=== PATIENT | female | born 1955 | race Caucasian/White ===

== ENCOUNTER → 2018-08-31 09:24 | Outpatient (CLI) | payer OTHER, SELFPAY ==
--- NOTE | 2018-08-31 09:27 | MM_ITS ---
MM Dig screening mamm BI w/CAD CAD Screening COMPARISON: Digital mammograms with CAD 08/11/2017 and 01/15/2016 INDICATION: There is no personal or family history of breast cancer TECHNIQUE: Standard CC and MLO images were obtained. R2 CAD reviewed. FINDINGS: Rather heterogenic fibroglandular densities are seen in central portions of both breast and the findings are bilateral and symmetrical. There is no suspicious lesion and there are no suspicious microcalcifications. IMPRESSION: Moderate breast density with no suspicious lesion seen BI-RADS Category: 1 Negative RECOMMENDED FOLLOW-UP: 1YR - 1 YEAR FOLLOW-UP (A letter has been sent to the patient regarding results of the study.)
== END ==
PROVIDERS: PCP Internal Medicine; Visit Provider Internal Medicine
DX: Z12.31 Encounter for screening mammogram for malignant neoplasm of breast (principal); I20.9 Angina pectoris, unspecified
CPT/HCPCS: 77067; 93005

== ENCOUNTER → 2019-09-03 09:48 | Outpatient (CLI) | payer BC, SELFPAY ==
--- NOTE | 2019-09-03 09:50 | MM_ITS ---
PROCEDURE: MM DIG SCREENING MAMM BI W/CAD CLINICAL INDICATION: SCREENING There is a history of breast cancer in the patient's paternal cousin. COMPARISON: [facility] DIG MAMM-SCREEN [facility]O from 01/15/2016 [facility] DIG MAMM-SCREEN [facility] W/CAD from 08/11/2017 [facility] MM Dig screening mamm BI w/CAD from 08/31/2018 TECHNIQUE: Standard CC and MLO images were obtained. R2 CAD reviewed. FINDINGS: Prominent somewhat heterogenic fibroglandular densities are seen in the central portions of both breasts and the findings of bilateral and symmetrical. There is no suspicious lesion and no suspicious microcalcifications. IMPRESSION: Moderate breast density with no suspicious lesions seen BI-RAD Category: 1 Negative FOLLOW-UP: 1YR 1 Year Follow-up (A letter has been sent to the patient regarding results of the study.) Dictated by: Dr. Mingo Blevins MD 09/06/2019 09:[address] Mingo Blevins MD in [place] 09/06/2019 09:51
== END ==
PROVIDERS: PCP Internal Medicine; Visit Provider Internal Medicine
DX: Z12.31 Encounter for screening mammogram for malignant neoplasm of breast (principal)
CPT/HCPCS: 77067

== ENCOUNTER → 2019-09-28 09:06 | Outpatient (POV) | payer BC, SELFPAY | PROVIDERS: Visit Provider Dermatology | DX: Z00.00 Encounter for general adult medical examination without abnormal findings (principal) ==

== ENCOUNTER → 2020-09-08 12:49 | Outpatient (CLI) | payer BC, SELFPAY ==
--- NOTE | 2020-09-08 12:51 | MM_ITS ---
PROCEDURE: MM DIG SCREENING MAMM BI W/CAD Digital Breast Tomosynthesis Included CLINICAL INDICATION: SCREENING There is a history of breast cancer in the patient's paternal cousin. There has been a previous biopsy left breast for benign disease. COMPARISON: MG [facility] DIG MAMM-SCREEN G[facility] W/CAD from 08/11/2017 MG [facility] MM Dig screening mamm BI w/CAD from 08/31/2018 MG MM DIG SCREENING MAMM BI W/CAD from 09/03/2019 TECHNIQUE: Standard CC and MLO images and 3D Tomosynthesis was obtained. R2 CAD reviewed. FINDINGS: Prominent heterogenic fibroglandular densities are seen in the central portions of both breast and the findings are bilateral and symmetrical. The findings are stable and unchanged from the previous exams. There is no suspicious lesion and no suspicious microcalcifications. There are couple fatty replaced nodes in both axilla. IMPRESSION: Moderate heterogenic breast density with no suspicious lesions seen BI-RAD Category: 1 Negative FOLLOW-UP: 1YR 1 Year Follow-up (A letter has been sent to the patient regarding results of the study.) Dictated by: Dr. Mingo Blevins MD 09/12/2020 11:52 Dr. Mingo Blevins MD in [place] 09/12/2020 11:52
== END ==
PROVIDERS: PCP Internal Medicine; Visit Provider Internal Medicine
DX: Z12.31 Encounter for screening mammogram for malignant neoplasm of breast (principal)
CPT/HCPCS: 77063; 77067

== ENCOUNTER 2021-01-20 12:16 | Emergency (ER) | payer BC, SELFPAY ==
[2021-01-20 12:17] VITALS: BP 175/83; PULSE 76; RESP 26; TEMP 36.8; O2SAT 99; BMI 64.5
--- NOTE | 2021-01-20 12:23 | HMH.EDGENADL ---
ED Disposition Clinical Impression: Facial contusion Qualifiers: Encounter type: initial encounter Qualified Code(s): S00.83XA - Contusion of other part of head, initial encounter Facial hematoma Qualifiers: Encounter type: initial encounter Qualified Code(s): S00.83XA - Contusion of other part of head, initial encounter Facial laceration Qualifiers: Encounter type: initial encounter Qualified Code(s): S01.81XA - Laceration without foreign body of other part of head, initial encounter Disposition: Home, Self-Care Condition on Discharge: Good Instructions: DI for Hematoma (Bruise), DI for Closed Head Injury Additional Instructions: Ice 20 minutes 4-5 times a day for 2 days. Keep head elevated for 2 days. Tylenol or ibuprofen for pain. Additional instructions for HEAD INJURY: Return immediately if severe headache, vomiting, problems with vision or speech, numbness or weakness of the extremities, or severe neck pain. Return to the emergency department if any redness or pus drainage from the skin wounds or if fever develops. Referrals: Moris Eng [Primary Care Provider] - - Critical Care Critical Care Time: No Attestation: On , the high probability of a clinically significant, sudden or life threatening deterioration of the following system(s) required my full and direct attention, intervention and personal management. The time I documented below is in addition to time spent performing reported procedures but includes the following listed in this critical care notation. Medical Decision Making - Johnathan Inquiry Pt receiving controlled substance: No Vital Signs: 01/20/21 12:17 01/20/21 13:37 Temperature 98.3 F 98.3 F Temperature Source Oral Oral Pulse Rate 71 Pulse Rate [Right] 76 Respiratory Rate 26 H 18 Blood Pressure 133/76 Blood Pressure [Right Arm] 175/83 H Blood Pressure Mean [Right Arm] 113 Blood Pressure Source Automatic Cuff Blood Pressure Position Sitting 02 Sat by Pulse Oximetry 99 Oxygen Delivery Method Room Air Room Air Orders (Tests/Meds): ED MEDICATIONS Discontinued Medications Generic Name Dose Route Start Last Admin Trade Name Freq PRN Reason Stop Dose Admin Tetanus/Reduced Diphtheria/Acell Pertussis 0.5 ml 01/20/21 12:31 01/20/21 12:40 Tet/Diphth/Pert-Adult 0.5ml Syringe IM 01/20/21 12:32 0.5 ml .ONCE ONE Administration - CT Data CT Scan: Head, Other (facial) Time Received: 13:[address] Reviewed: Yes: I have viewed the radiologist's interpretation Findings Narrative: PROCEDURE: CT HEAD/BRAIN WO CON CLINICAL INDICATION: facial injury Head injury with headache/pain, contusion, abrasion or hematoma COMPARISON: No exams were available for comparison TECHNIQUE: Axial images obtained. All CT scans at the facility use one or more dose reduction, viz: automated exposure control, ma/kV adjustment per patient size (including targeted exams where dose is matched to indication, i.e. head), or iterative reconstruction technique. FINDINGS: No midline shift, mass effect, intracranial hemorrhage, hydrocephalus, or extra-axial fluid collection is evident. The calvarium has an unremarkable appearance. No mastoid effusion. Trace amount fluid is present in the sphenoid sinus on the left. IMPRESSION: No acute intracranial finding Dictated by: Reinier Patterson MD 01/20/2021 13:10 Reinier Patterson MD in [place] 01/20/2021 13:10 PROCEDURE: CT FACIAL BONES WO CON CLINICAL HISTORY: facial injury Facial trauma, nasal injury with contusion COMPARISON: No exams were available for comparison TECHNIQUE: Axial images obtained with sagittal and coronal reformats. All CT scans at the facility use one or more dose reduction, viz: automated exposure control, ma/kV adjustment per patient size (including targeted exams where dose is matched to indication, i.e. head), or iterative reconstruction technique. FINDINGS: There do
--- NOTE | 2021-01-20 12:31 | CT_ITS ---
PROCEDURE: CT FACIAL BONES WO CON CLINICAL HISTORY: facial injury Facial trauma, nasal injury with contusion COMPARISON: No exams were available for comparison TECHNIQUE: Axial images obtained with sagittal and coronal reformats. All CT scans at the facility use one or more dose reduction, viz: automated exposure control, ma/kV adjustment per patient size (including targeted exams where dose is matched to indication, i.e. head), or iterative reconstruction technique. FINDINGS: There does appear to be a nondisplaced fracture involving tip of nasal bone which is age indeterminate as there is no soft tissue swelling at this region.. Nasal septum has an unremarkable appearance. No maxillary sinus air-fluid level. There is a small amount fluid in the sphenoid sinus. There are few scattered small cervical lymph nodes. Considerable artifact present patient's dental work. There is a small retention cyst in the floor the left maxillary sinus at approximately 9 x 5 mm. There is soft tissue swelling along the bridge of the nose and central frontal region. The overlying frontal sinus has an unremarkable appearance. Hematoma is present at the bridge of the nasal bone within the soft tissues measuring 1.8 x 0.8 cm. IMPRESSION: 1. Soft tissue hematoma is present at the junction at the bridge of the nose region and frontal area 2. Nondisplaced fracture involves the tip of the nasal bone. 3. Small air-fluid level in the sphenoid sinus. Left maxillary retention cyst Dictated by: Reinier Patterson MD 01/20/2021 13:21 Reinier Patterson MD in [facility] 01/20/2021 13:21
--- NOTE | 2021-01-20 12:31 | CT_ITS ---
PROCEDURE: CT HEAD/BRAIN WO CON CLINICAL INDICATION: facial injury Head injury with headache/pain, contusion, abrasion or hematoma COMPARISON: No exams were available for comparison TECHNIQUE: Axial images obtained. All CT scans at the facility use one or more dose reduction, viz: automated exposure control, ma/kV adjustment per patient size (including targeted exams where dose is matched to indication, i.e. head), or iterative reconstruction technique. FINDINGS: No midline shift, mass effect, intracranial hemorrhage, hydrocephalus, or extra-axial fluid collection is evident. The calvarium has an unremarkable appearance. No mastoid effusion. Trace amount fluid is present in the sphenoid sinus on the left. IMPRESSION: No acute intracranial finding Dictated by: Reinier Patterson MD 01/20/2021 13:10 Reinier Patterson MD in [facility] 01/20/2021 13:10
[2021-01-20 13:37] VITALS: BP 133/76; PULSE 71; RESP 18; TEMP 36.8; O2SAT 99
== END 2021-01-20 13:39 | disposition home or self-care (01) ==
PROVIDERS: Emergency Provider Emergency Medicine; PCP Internal Medicine
DX: S00.83XA Contusion of other part of head, initial encounter (principal); S01.81XA Laceration without foreign body of other part of head, initial encounter; W22.8XXA Striking against or struck by other objects, initial encounter; Y92.89 Other specified places as the place of occurrence of the external cause; Z23 Encounter for immunization
CPT/HCPCS: 70450; 70486; 90471; 90715; 99282

== ENCOUNTER → 2021-09-25 13:25 | Outpatient (CLI) | payer BC, SELFPAY ==
--- NOTE | 2021-09-25 13:27 | MM_ITS ---
PROCEDURE INFORMATION: Exam: MG Bilateral Screening 3D Mammography Exam date and time: 09/25/2021 1:27 PM Age: 65 years old Clinical indication: Encounter for screening mammogram for malignant neoplasm of breast TECHNIQUE: Imaging protocol: Bilateral screening tomosynthesis and 2D mammography including computer-aided detection (CAD) when performed. COMPARISON: 1. MG MM DIG SCREENING MAMM BI W/CAD 09/08/2020 12:59 PM 2. MG MM DIG SCREENING MAMM BI W/CAD 09/03/2019 10:00 AM FINDINGS: MAMMOGRAPHY: Breast composition: The breast tissue is heterogeneously dense, which may obscure small masses. Mass: None. Architectural distortion: None. Calcifications: No suspicious calcifications. Asymmetric density: None. Skin thickening: None. Axillary adenopathy: None. IMPRESSION: No mammographic evidence of malignancy. Annual screening is recommended unless otherwise clinically indicated. ASSESSMENT: BI-RADS Category 1: Negative
[2021-09-25 19:12] LABS: Basophils # 0.1 K/mm3 (0-0.2); Basophils % 0.7 % (0.1-2.0); Eosinophils # 0.2 K/mm3 (0.0-0.4); Eosinophils % 2.1 % (0.1-12.0); Hematocrit 39.2 % (37.0-47.0); Hemoglobin 12.8 g/dL (12.2-16.2); Lymphocytes # 2.8 K/mm3 (0.7-4.5); Lymphocytes % 36.1 % (10-50); Mean Corpuscular HGB Conc 32.7 g/dL (31.8-35.4); Mean Corpuscular Hemoglobin 28.7 pg (27.0-31.2); Mean Corpuscular Volume 87.9 fl (81-99); Mean Platelet Volume 10.4 fl (7.4-10.4); Monocytes # 0.4 K/mm3 (0.1-1.0); Monocytes % 5.3 % (1.7-9.3); Neutrophils # 4.3 K/mm3 (1.8-7.8); Neutrophils % 55.8 % (37.0-80.0); Platelet Count 281 K/mm3 (142-424); Red Blood Count 4.46 M/mm3 (4.20-5.40); Red Cell Distribution Width 13.4 % (11.5-17.5); White Blood Count 7.6 K/mm3 (4.8-10.8)
[2021-09-25 19:22] LABS: Chloride 102 mmol/L (98-107)
[2021-09-25 19:23] LABS: Potassium 4.3 mmoL/L (3.5-5.1); Sodium 139 mmol/L (136-145)
[2021-09-25 19:25] LABS: Alanine Aminotransferase 20 U/L (12-78); Albumin Level 4.7 g/dl (3.5-5.0); Albumin/Globulin Ratio 1.7 (1.1-1.8); Alkaline Phosphatase 106 U/L (38-126); Anion Gap 15.3 mEq/L (5-15); Aspartate Amino Transferase 34 U/L (14-36); Bilirubin,Total 0.2 mg/dl (0.2-1.3); Blood Urea Nitrogen 29 mg/dl (7-17); Carbon Dioxide 26 mmol/L (22.0-30.0); Estimated Glomerular Filt Rate 72 ml/min (>60); GFR (African American) 87 ML/MIN (>60); Globulin 2.7 g/dL (1.3-3.2); Total Protein,Serum 7.4 g/dl (6.3-8.2)
[2021-09-25 19:26] LABS: Calcium 9.7 mg/dl (8.4-10.2); Chol/HDL Ratio 2.6 (1-3.5); Cholesterol 147 mg/dl (140-200); Glucose 65 mg/dl (74-100); HDL Cholesterol 56 mg/dl (40-60); Triglycerides 84 mg/dl (30-150); VLDL Cholesterol 17 mg/dL (0-40)
[2021-09-25 19:37] LABS: Direct LDL Cholesterol 67.53 mg/dL (100-129)
== END ==
PROVIDERS: PCP Internal Medicine; Visit Provider Internal Medicine
DX: Z12.31 Encounter for screening mammogram for malignant neoplasm of breast (principal); M54.2 Cervicalgia; E78.5 Hyperlipidemia, unspecified; M15.0 Primary generalized (osteo)arthritis; N95.1 Menopausal and female climacteric states
CPT/HCPCS: 77063; 77067; 80053; 80061; 85025

== ENCOUNTER → 2022-02-18 15:36 | Outpatient (CLI) | payer MEDICAID, SELFPAY ==
--- NOTE | 2022-02-18 15:50 | ECG_ITS ---
APPROVED REPORT Exam: Resting ECG HR:72 bpm ECG Measurements Heart Rate 72 AXES QRSd 86 QRS 7 QT 377 T 54 QTc 401 Conclusion ATRIAL FLUTTER/TACHYCARDIA ABNORMAL RHYTHM ECG Electronically signed by : Moris Eng MD 02/18/2022 16:08:19
== END ==
PROVIDERS: PCP Internal Medicine; Visit Provider Internal Medicine
DX: R00.2 Palpitations (principal); R07.9 Chest pain, unspecified
CPT/HCPCS: 93005

== ENCOUNTER → 2022-02-28 10:52 | Outpatient (CLI) | payer MEDICARE, SELFPAY ==
--- NOTE | 2022-02-28 | CA_ITS ---
APPROVED REPORT EXAM: Comprehensive 2D, Doppler, and color-flow Echocardiogram Air Brake Man: Shayna Edouard RT(R) Ht: 5 ft 1 in Wt: 136lbs BSA: 1.60 BP: 125/84 mmHg Indications: AFlutter, CP, palpitations, fatigue, BOYLE, hyperlipidemia, family history of HD M-Mode Dimensions RVDd 1.57 cm (0.9-2.6) LA Diam 3.05 cm (1.9-4.0) LVDd 3.59 cm (3.5-5.7) Ao Diam 1.65 cm (2.0-3.7) LVDs 2.71 cm (3.5-5.7) IVSd 0.68 cm (0.6-1.1) PWd 1.00 cm (0.6-1.1) EF (Teich) 49.50% FS 24.50% EDV (Teich) 54.10 mL ESV (Teich) 27.30 mL LV Diastology MED E' 15.50 (< 7 cm/sec) LAT E' 16.10 (<10 cm/sec) Tricuspid Valve TR P. Velocity 224.00 cm/s RAP Estimate 10.00 mmHg RVSP 30.10 mmHg Left Ventricle Left atrium is mildly enlarged, left ventricle is normal size, estimated ejection fraction 55% with no regional wall motion abnormality, diastolic parameters are inconclusive. Right Ventricle Right atrium and right ventricle qualitatively mildly enlarged with normal contractility. Aortic Valve Aortic valve is minimally thickened and fibrosed there is no aortic stenosis or aortic insufficiency. Mitral Valve Mitral valve is grossly normal, there is mild mitral regurgitation. Tricuspid Valve Tricuspid valve is grossly normal, there is trace tricuspid regurgitation, calculated right ventricular systolic pressure 30 mmHg. Pulmonic Valve Pulmonic valve is poorly visualized. Great Vessels Aortic root is normal size. Inferior vena cava normal size with normal inspiratory collapse. Pericardium No significant pericardial effusion noted. Conclusion 1. Mild biatrial enlargement, normal left ventricular size, estimated ejection fraction 55% with no regional wall motion abnormality. Diastolic parameters of inconclusive. 2. Mildly enlarged right ventricle with normal contractility. 3. Mild mitral and trace tricuspid regurgitation, calculated right ventricular systolic pressure 30 mmHg. 4. No significant pericardial effusion. 5. Inferior vena cava normal size with normal inspiratory collapse. Electronically signed by : Clemente Collado MD 03/01/2022 11:34:43
== END ==
PROVIDERS: PCP Internal Medicine; Visit Provider Internal Medicine
DX: R55 Syncope and collapse (principal); R00.2 Palpitations; I48.3 Typical atrial flutter
CPT/HCPCS: 93306

== ENCOUNTER → 2022-03-05 10:21 | Outpatient (POV) | payer MEDICARE, SELFPAY | PROVIDERS: Visit Provider Dermatology | DX: Z00.00 Encounter for general adult medical examination without abnormal findings (principal) ==

== ENCOUNTER → 2022-10-16 16:10 | Outpatient (CLI) | payer MEDICARE, SELFPAY ==
--- NOTE | 2022-10-16 16:12 | MM_ITS ---
PROCEDURE INFORMATION: Exam: MG Bilateral Screening 3D Mammography Exam date and time: 10/16/2022 4:03 PM Age: 66 years old Clinical indication: Screening examination TECHNIQUE: Imaging protocol: Bilateral Screening tomosynthesis and 2D mammography including computer-aided detection (CAD) when performed. COMPARISON: 1. MG MM DIG SCREENING MAMM BI W/CAD 09/25/2021 1:27 PM 2. MG MM DIG SCREENING MAMM BI W/CAD 09/08/2020 12:59 PM FINDINGS: MAMMOGRAPHY: Breast composition: The breasts are heterogeneously dense, which may obscure small masses. Mass: None. Architectural distortion: None. Calcifications: No suspicious calcifications. Asymmetric density: None. Skin thickening: None. Axillary adenopathy: None. IMPRESSION: No mammographic evidence of malignancy. Annual screening is recommended unless otherwise clinically indicated. ASSESSMENT: BI-RADS Category 1: Negative
== END ==
PROVIDERS: PCP Internal Medicine; Visit Provider Internal Medicine
DX: Z12.31 Encounter for screening mammogram for malignant neoplasm of breast (principal)
CPT/HCPCS: 77063; 77067

== ENCOUNTER → 2022-11-25 13:41 | Outpatient (CLI) | payer MEDICARE, SELFPAY | PROVIDERS: PCP Internal Medicine; Visit Provider Internal Medicine | DX: G47.33 Obstructive sleep apnea (adult) (pediatric) (principal); G47.00 Insomnia, unspecified; I10 Essential (primary) hypertension | CPT/HCPCS: G0399 ==

== ENCOUNTER → 2022-12-31 14:25 | Outpatient (CLI) | payer MEDICARE, SELFPAY ==
--- NOTE | 2022-12-31 14:30 | XR_ITS ---
FINAL REPORT CLINICAL HISTORY: LUMBAR PAIN FINDINGS: AP, lateral, and oblique views of the lumbar spine were obtained. There is no acute fracture or acute malalignment. There is mild levoscoliosis. Vertebral body height is preserved. There is multilevel degenerative disease which is most pronounced at L1-2. No acute paraspinal abnormality is identified. IMPRESSION: 1. Multilevel degenerative disease, most pronounced at L1-2. 2. No acute osseous abnormality. Reviewed, Interpreted and Dictated by Anali Zheng MD Transcribed by Anitha Kay Authenticated and [facility]
== END ==
PROVIDERS: PCP Internal Medicine; Visit Provider Internal Medicine
DX: M54.50 Low back pain, unspecified (principal)
CPT/HCPCS: 72110

== ENCOUNTER → 2023-04-01 09:58 | Outpatient (POV) | payer MEDICARE, SELFPAY | PROVIDERS: Visit Provider Dermatology | DX: Z00.00 Encounter for general adult medical examination without abnormal findings (principal) ==

== ENCOUNTER → 2023-06-27 13:45 | Outpatient (CLI) | payer MEDICARE, SELFPAY ==
--- NOTE | 2023-06-27 13:48 | MR_ITS ---
FINAL REPORT CLINICAL HISTORY: LOWER BACK PAIN WITH RIGHT SIDE SCIATICA COMPARISON: None FINDINGS: Multiplanar MR imaging of the lumbar spine was performed without contrast. On the sagittal T2-weighted images, there is abnormal decreased signal throughout the lumbar discs. The vertebrae are of normal height. The vertebral alignment is normal. L1-2: An annular bulge is present with mild bilateral neural foraminal narrowing. L2-3: There is no significant canal stenosis or neural foraminal narrowing. L3-4: There is a mild annular bulge with mild to moderate bilateral neural foraminal narrowing. L4-5: There is a mild annular bulge with mild to moderate bilateral neural foraminal narrowing. L5-S1: There is no significant canal stenosis or neural foraminal narrowing. 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 IMPRESSION: Mild multilevel degenerative change as described at the L1-2, L3-4, and L4-5 levels. Reviewed, Interpreted and Dictated by Yogi Mitchell MD Transcribed by Siri Arzola Authenticated and [facility]
== END ==
PROVIDERS: PCP Internal Medicine; Visit Provider Internal Medicine
DX: M54.41 Lumbago with sciatica, right side
CPT/HCPCS: 72148; 76376

== ENCOUNTER → 2023-09-09 12:42 | Outpatient (CLI) | payer MEDICARE, SELFPAY ==
--- NOTE | 2023-09-09 12:46 | XR_ITS ---
FINAL REPORT CLINICAL HISTORY: . SWOLLEN, ALMOST FELL AND CAUGHT SELF ,BUT HIT FINGER FINDINGS: AP, oblique and lateral views of the right fifth finger were obtained. There is no prior exam for comparison. There is a small calcification along the dorsal aspect of the DIP joint favored to be chronic. This may be due to chronic avulsion. There is multijoint degenerative disease greatest at the DIP joint. No other fractures identified. IMPRESSION: Calcification dorsal to the DIP joint may be due to chronic avulsion. Reviewed, Interpreted and Dictated by Anali Zheng MD Transcribed by Acosta Lopez Authenticated and [facility]
== END ==
PROVIDERS: PCP Internal Medicine; Visit Provider Internal Medicine
DX: M79.644 Pain in right finger(s) (principal); S60.946A Unspecified superficial injury of right little finger, initial encounter
CPT/HCPCS: 73140

== ENCOUNTER → 2023-10-17 09:51 | Outpatient (CLI) | payer MEDICARE, SELFPAY ==
--- NOTE | 2023-10-17 09:57 | MM_ITS ---
PROCEDURE INFORMATION: Exam: MG Bilateral Screening 3D Mammography Exam date and time: 10/17/2023 9:55 AM Age: 67 years old Clinical indication: Screening mammogram TECHNIQUE: Imaging protocol: Bilateral Screening tomosynthesis and 2D mammography including computer-aided detection (CAD) when performed. COMPARISON: 1. MG MM DIG SCREENING MAMM BI W/CAD 10/16/2022 4:03 PM 2. MG MM DIG SCREENING MAMM BI W/CAD 09/25/2021 1:27 PM 3. MG MM DIG SCREENING MAMM BI W/CAD 09/08/2020 12:59 PM 4. MG MM DIG SCREENING MAMM BI W/CAD 09/03/2019 10:00 AM FINDINGS: MAMMOGRAPHY: Breast composition: The breast is heterogeneously dense, which may obscure small masses. Mass: None. Architectural distortion: No new or suspicious architectural distortion. Calcifications: No new or suspicious calcifications are present Asymmetric density: No new or suspicious asymmetric density is present Skin thickening: None. Axillary adenopathy: None. IMPRESSION: No mammographic evidence of malignancy. Recommend annual screening mammography unless otherwise clinically indicated. ASSESSMENT: BI-RADS category 1: Negative
== END ==
PROVIDERS: PCP Internal Medicine; Visit Provider Internal Medicine
DX: Z12.31 Encounter for screening mammogram for malignant neoplasm of breast (principal)
CPT/HCPCS: 77063; 77067

== ENCOUNTER 2024-10-26 08:14 | Outpatient (CLI) | payer MEDICARE, SELFPAY ==
--- NOTE | 2024-10-26 08:14 | MM_ITS ---
PROCEDURE INFORMATION: Exam: MG Bilateral Screening 3D Mammography Exam date and time: 10/26/2024 8:01 AM Age: 68 years old Clinical indication: Screening mammogram TECHNIQUE: Imaging protocol: Bilateral Screening tomosynthesis and 2D mammography including computer-aided detection (CAD) when performed. COMPARISON: 1. MG MM DIG SCREENING MAMM BI W/CAD 10/17/2023 9:55 AM 2. MG MM DIG SCREENING MAMM BI W/CAD 10/16/2022 4:03 PM 3. MG MM DIG SCREENING MAMM BI W/CAD 09/25/2021 1:27 PM 4. MG MM DIG SCREENING MAMM BI W/CAD 09/08/2020 12:59 PM FINDINGS: MAMMOGRAPHY: Breast composition: There are scattered areas of fibroglandular density. Mass: None. Architectural distortion: No new or suspicious architectural distortion. Calcifications: No new or suspicious calcifications are present Asymmetric density: No new or suspicious asymmetric density is present Skin thickening: None. Axillary adenopathy: None. IMPRESSION: No mammographic evidence of malignancy. Recommend annual screening mammography unless otherwise clinically indicated. ASSESSMENT: BI-RADS category 1: Negative.
== END 2024-10-26 23:59 | disposition home or self-care (01) ==
LOC: RAD 08:14
PROVIDERS: PCP Internal Medicine; Visit Provider Internal Medicine
DX: Z12.31 Encounter for screening mammogram for malignant neoplasm of breast (principal)
CPT/HCPCS: 77063; 77067

== ENCOUNTER 2025-08-04 07:54 | Day surgery (SDC) | payer MEDICARE, SELFPAY ==
[2025-08-02 10:57] VITALS: BMI 25.3
--- NOTE | 2025-08-03 15:26 | P.HP_ITS ---
History of Present Illness *Admission Date: 08/04/25 *History of present illness: Mrs. Montiel is a 69-year-old female who is here for screening/surveillance colonoscopy. She did have a colonoscopy in May 2017 (with me) and had 2 polyps (tubular adenoma x 1 and hyperplastic polyp x 1) removed. The examination is deemed medically necessary for screening/surveillance colonoscopy. The patient has been seen, interviewed and examined prior to the procedure by both myself and the anesthesia provider. [facility] Disclaimer: The information contained in this section may have been updated after the patient was seen, as this information can be updated by other users. Medical History Hx of blepharitis HTN (hypertension) Atrial flutter Rosacea HLD (hyperlipidemia) Surgical History Hx of colonoscopy with polypectomy Hx of hysterectomy Hx of cholecystectomy Hx of section History of cardiac ablation for atrial fibrillation Family History Other Colon cancer Social History (Updated 08/04/25 @ 09:10 by Krystyna Tran CRNA) Smoking Status: Never smoker alcohol intake: never substance use type: unknown current occupational status: retired Travel in the last 8 weeks?: None Have you lived/traveled outside [place] in past 30 days?: No Contact w/someone who lives/traveled outside US past 30 days?: No Exposure to someone with infectious disease in past 14 days?: No Do you have a fever (greater than 100.4 F or 38 C)?: No Have you tested positive for COVID-19?: No Exposed to someone with COVID-19 in past 14 days?: No Do you have a sore throat?: No Do you have a cough?: No Do you have any weakness?: No Are you experiencing any nausea/vomitting?: No Do you have any diarrhea?: No Are you experiencing any unusual bleeding?: No Do you have any muscle aches/pain?: No Do you have any abdominal pain?: No Are you experiencing loss of taste or smell?: No Other Medical History Have you received the Flu Vaccine for this season: Yes Have you received the Pneumonia Vaccine: Yes Review of Systems Review of Systems Review of systems (narrative): Negative *Cardiovascular Comments: Negative *Gastrointestinal Comments: Negative *Genitourinary Comments: Negative *Musculoskeletal Comments: Negative *Neurologic Comments: Negative Meds Home Medications and Allergies Home Medications ?Medication ?Instructions ?Recorded ?Confirmed ?Type doxycycline hyclate 20 mg tablet 20 mg PO BID 10/13/24 08/04/25 History hydrochlorothiazide 25 mg tablet 25 mg PO DAILY 08/04/25 History estradiol 0.01% (0.1 mg/gram) 1 applic vaginal DAILY 0 05/18/25 08/04/25 History vaginal cream rosuvastatin 10 mg tablet See Rx Instructions .Route 0 05/18/25 08/04/25 Rx .COMPLEX #90 tabs apixaban 5 mg tablet (Eliquis) See Rx Instructions .Ro bryanna 07/12/25 08/04/25 Rx .COMPLEX #180 tabs magnesium glycinate 100 mg (as 100 mg PO DAILY 5 08/04/25 History glycinate) tablet psyllium husk 0.4 gram capsule 0.4 g PO DAILY 08/02/25 08/04/25 History (Daily Fiber) New Prescriptions to Start Prescriptions: Allergies Allergy/AdvReac Type Severity Reaction Status Date / Time No Known Allergies Allergy Verified 08/04/25 08:43 Exam Data for Last 24 hours I & O for Last 24 hours: Intake & Output 07/31/25 08/01/25 08/02/25 08/03/25 23:59 23:59 23:59 23:59 Weight 134 lb *Routine HEENT Exam Head: Present normocephalic Eye: Present EOMI and PERRL ENT: Present mucous membranes moist *Routine Neck Exam Neck: Present supple *Routine Respiratory Exam Respiratory: Present CTA bilaterally *Routine Cardiovascular Exam Cardiovascular: Present RRR *Routine Abdominal Exam Abdominal: Present soft and normoactive bowel sounds; Absent tenderness *Routine Rectal Exam Rectal:: deferred *Routine Genitalia Exam Genitalia:: deferred *Routine Extremities Exam Extremities: Absent cyanosis, clubbing or edema *Routine Skin Exam Skin: Present warm; Absent rash *Routine Neurological Exam Neurological: Present alert and oriented X3 Assessment and Plan *Assessment and plan (1) Personal history of adenomatous and serrated colon polyps: Status: Acute Category: Medical Code(s): Z86.0101 - Personal history of adenomatous and serrated colon polyps (2) Screening for colon cancer: Status: Acute Category: Medical Code(s): Z12.11 - Encounter for screening for malignant neoplasm of colon Plan A/P: 1. Personal history of adenomatous colon polyps/screening for colon cancer is the preprocedural diagnosis. The patient will be anesthetized/sedated using MAC sedation. The patient has been seen and examined. Cardiac and lung assessment prior to the examination is stable. Proceed with planned screening colonoscopy.
--- NOTE | 2025-08-04 06:35 | P.PCN_ITS ---
[facility] Procedure Note Date: 08/04/25 Time: 10:10 Procedure Note:: Colonoscopy Procedure Report: Colonoscopy with cold snare polypectomy Endoscopist: Twan Jorge II, MD Referring physician: Moris Eng MD Date of Procedure: August 04, 2025 Equipment: Olympus [id number] adult colonoscope Sedation: MAC sedation Indication: Mrs. Montiel is a 69-year-old female who is here for screening/surveillance colonoscopy. The patient did have a normal colonoscopy in 2011 (Dann Cai M.D.). She did have a colonoscopy in May 2017 (with ) and had 2 polyps (tubular adenoma x 1 and hyperplastic polyp x 1) removed. The patient's last colonoscopy was in July 2022 and she did have 7 diminutive which were polyps (tubular adenomas x 7) removed. The patient does state that her brother had colon cancer at the age of 62. She reports no abdominal pain, weight loss, change in her bowel habits or rectal bleeding. The patient does state that she had seen a urologist and had 2 cystoscopies. She did have an opening in the bladder that appeared to be a fistula. The patient does sometimes have pneumaturia. The examination is deemed medically necessary for screening/surveillance colonoscopy. Procedure: Prior to the procedure, a history and physical exam was performed, and patient's medications and allergies were reviewed. The risks, benefits and alternatives of the sedation and procedure were discussed with the patient. All questions were answered and informed consent was obtained. The patient was brought to the procedure room. Patient identification and proposed procedure were verified by the physician and the nurse. The patient was placed in a left lateral decubitus position and the scope was passed under direct vision. Throughout the procedure, the patient's blood pressure, pulse, and oxygen saturations were monitored continuously. The colonoscopy was accomplished without difficulty. The patient tolerated the procedure well. Findings: On digital rectal examination there was normal rectal tone. There were no external hemorrhoids. The colonoscope was introduced through the anal canal to the rectum and advanced to the cecum. The ileocecal valve and appendiceal orifice were identified. The scope was advanced a short distance into the ileum which appeared grossly normal. The scope was then withdrawn into the colon. There was a single 2 to 3 mm polyp in the ascending colon removed via cold snare polypectomy. The remaining cecum, ascending and transverse colon and mucosa were grossly normal. There were scattered diverticuli throughout the descending and sigmoid colon (LEFT colon). The rectum itself was normal. Upon retroflexion within the rectum there were grade 1-2 internal hemorrhoids. The preparation was excellent throughout with Broadus Preparation Score of 9. The cecal time was 12 minutes. Impression: 1. Diminutive 2 to 3 mm ascending colon polyp 2. Left-sided diverticulosis 3. Grade 1-2 internal hemorrhoids Plan: I would recommend repeat screening/surveillance colonoscopy again in 5 years based upon her family history and prior adenomatous polyps. I would encourage psyllium bulking fiber supplementation on a maintenance basis. 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 She does have some pneumaturia and cystoscopy showed opening/probable fistula. These do not usually close spontaneously. If the patient were to have frequent UTIs or excessive pneumaturia, she would likely need repair.
[2025-08-04 08:46] VITALS: BP 135/74; PULSE 72; RESP 18; TEMP 36.6; O2SAT 100
[2025-08-04] MEDS: LACTATED RINGERS 1000ML 1,000 ML 50 ML IV (08:54)
--- NOTE | 2025-08-04 09:10 | EXP.ANES.CKL ---
[facility] Disclaimer: The information contained in this section may have been updated after the patient was seen, as this information can be updated by other users. Medical History Hx of blepharitis HTN (hypertension) Atrial flutter Rosacea HLD (hyperlipidemia) Surgical History Hx of colonoscopy with polypectomy Hx of hysterectomy Hx of cholecystectomy Hx of section History of cardiac ablation for atrial fibrillation Family History Other Colon cancer Social History Smoking Status: Never smoker alcohol intake: never substance use type: unknown current occupational status: retired Travel in the last 8 weeks?: None [facility] Anesthesia Checklist Patient Identification Patient Identification: Arm Band and Verbal (Name & ) Structural Data Admitted From: Home Planned Operative Procedure/s: colonscopy Consent for Planned Operative Procedure(s) Verified: Yes Verified Documents: Surgical Consent and History and Physical NPO Status Verified Time NPO: 00:00 Additional verifications Anesthesia Reactions: No Previous Colonoscopy: Yes Airway Assessment Mallampati Score:: Class II Dentition: Good Dentition Neurological Assessment Level of Consciousness: Awake, Alert and Appropriate Hx Seizures: No Numbness or tingling in extremities: No Anesthesia Plan Anesthesia Risk discussed: Yes Anesthesia Plan: Verified ASA Class: II Anesthesia Type: MAC
[2025-08-04 10:14] VITALS: BP 102/56; PULSE 64; RESP 18; TEMP 36.4; O2SAT 98
[2025-08-04 10:24] VITALS: BP 104/54; PULSE 63; O2SAT 100
[2025-08-04 10:34] VITALS: BP 123/69; PULSE 60; O2SAT 99
[2025-08-04 10:44] VITALS: BP 116/61; PULSE 60; O2SAT 99
== END 2025-08-04 10:44 | disposition home or self-care (01) ==
LOC: OUTP 07:54
PROVIDERS: PCP Internal Medicine; Visit Provider Internal Medicine Gastroenterology
PROC: 0DJD8ZZ Inspection of Lower Intestinal Tract, Via Natural or Artificial Opening Endoscopic (ICD-10-PCS; CPT 45378; principal; 2025-08-04 09:30)
DX: Z12.11 Encounter for screening for malignant neoplasm of colon (principal); D12.2 Benign neoplasm of ascending colon; K57.30 Diverticulosis of large intestine without perforation or abscess without bleeding; K64.1 Second degree hemorrhoids; Z86.0101 Personal history of adenomatous and serrated colon polyps; Z86.0102 Personal history of hyperplastic colon polyps; Z80.0 Family history of malignant neoplasm of digestive organs; I10 Essential (primary) hypertension; E78.5 Hyperlipidemia, unspecified; Z79.01 Long term (current) use of anticoagulants; Z79.899 Other long term (current) drug therapy; I48.92 Unspecified atrial flutter; Z87.448 Personal history of other diseases of urinary system
CPT/HCPCS: 45385; J2003; J2704; J7120